=== PATIENT | female | born 1995 | race African-American/Black ===

== ENCOUNTER 2020-09-30 03:13 | Emergency (ER) | payer SELFPAY ==
[2020-09-30] MEDS ORDERED: Ibuprofen 200 MG TAB ONE (04:17)
[2020-09-30] MEDS ORDERED: HYDROcodone/Acetaminophen 5/325 mg Tablet ONE (04:17)
== END 2020-09-30 04:26 | disposition home or self-care (01) ==
LOC: CSHERS 03:13
DX: K08.89 Other specified disorders of teeth and supporting structures (principal)
CPT/HCPCS: 99282

== ENCOUNTER 2020-09-30 22:41 | Emergency (ER) | payer SELFPAY ==
[2020-09-30] MEDS ORDERED: Ketorolac Tromethamine 30 MG/ML VIAL ONE (23:07)
== END 2020-09-30 23:22 | disposition home or self-care (01) ==
LOC: CSHERS 22:41
DX: K02.9 Dental caries, unspecified (principal)
CPT/HCPCS: 96372; 99282; J1885

== ENCOUNTER 2020-10-19 20:27 | Emergency (ER) | payer SELFPAY | END 2020-10-19 22:10 | disposition left against medical advice (07) | LOC: CSHERS 20:27 | DX: Z53.21 Procedure and treatment not carried out due to patient leaving prior to being seen by health care provider (principal) ==

== ENCOUNTER 2020-10-21 23:01 | Emergency (ER) | payer SELFPAY | END 2020-10-22 00:21 | disposition home or self-care (01) | LOC: CSHERS 23:01 | DX: S00.83XA Contusion of other part of head, initial encounter (principal); H60.92 Unspecified otitis externa, left ear; K02.9 Dental caries, unspecified; W50.0XXA Accidental hit or strike by another person, initial encounter | CPT/HCPCS: 99282 ==

== ENCOUNTER 2021-05-01 21:24 | Emergency (ER) | payer OTHER ==
[2021-05-01 22:07] LABS: #Basophils 0.1 10x3/uL (0.0-0.2); #Eosinphils 0.1 10x3/uL (0.0-0.5); #Monocytes 0.6 10x3/uL (0.0-1.1); #Neutrophils 4.2 10x3/uL (1.5-8.4); %Basophils 0.7 % (0.0-2.0); %Eosinophils 1.3 % (0.0-6.0); %Lymphocytes 27.3 % (18.0-47.0); %Monocytes 8.1 % (0.0-10.0); Hemoglobin 12.6 g/dL (12.0-15.5); Mean Corpuscular HGB CONC 32.6 g/dL (32.0-36.0); Mean Corpuscular Hemoglobin 30.1 pg (27.0-33.0); Mean Corpuscular Volume 92.1 fl (81.6-98.3); Mean Platelet Volume 9.2 fl (7.4-10.4); Platelet Count 332 10x3/uL (150-450); RBC Distribution Width 14.1 % (11.5-14.5); Red Blood Cell (RBC) Count 4.19 10x6/uL (3.90-5.03); White Blood Cell (WBC) Count 6.8 10x3/uL (3.5-10.5)
[2021-05-01 22:17] LABS: Bilirubin Neg (Negative); Blood, Urine Negative (Negative); Clarity Clear (Clear); Glucose, Urine (Dipstick) Normal (Negative); Ketone, Urine Negative (Negative); Leukocyte Negative (Negative); Nitrite Negative (Negative); Protein, Urine (Dipstick) 15 mg/dl (Neg-Trace); Specific Gravity, Urine 1.025 (1.002-1.036); Urobilinogen Normal mg/dL (Less than 2)
[2021-05-01 22:18] LABS: Pregnancy Test - Urine (BHCG) Negative (Negative); Pregu Control Background? CLEAR/WHITE (CLR/WHITE); Pregu Control Bar Appear? YES (CONTROL BAR); Specific Gravity 1.025 (1.002-1.036)
[2021-05-01 22:22] LABS: ALT (SGPT) 23 U/L (8-55); AST (SGOT) 16 U/L (5-34); Albumin 4.2 g/dL (3.5-5.0); Alkaline Phosphatase 72 U/L (40-110); Anion Gap 14 mmol/L (10-20); BUN (Urea Nitrogen) 8 mg/dL (7.0-18.7); Bilirubin, Total 0.2 mg/dL (0.2-1.2); Calc. Creatinine Clearance 0 mL/min (70-130); Calcium 9.2 mg/dL (7.8-10.44); Carbon Dioxide 22 mmol/L (22-29); Chloride 109 mmol/L (98-107); Globulin 3.3 g/dL (2.4-3.5); Glucose 135 mg/dL (70-105); Potassium 3.5 mmol/L (3.5-5.1); Protein, Total 7.5 g/dL (6.0-8.3); Sodium 141 mmol/L (136-145)
== END 2021-05-01 22:44 | disposition home or self-care (01) ==
LOC: CSHERS 21:24
DX: R10.30 Lower abdominal pain, unspecified (principal)
CPT/HCPCS: 80053; 81003; 81025; 85025; 99284

== ENCOUNTER 2021-06-12 17:12 | Emergency (ER) | payer OTHER ==
[2021-06-12 18:40] LABS: Bilirubin Neg (Negative); Blood, Urine 150 (Negative); Clarity Clear (Clear); Glucose, Urine (Dipstick) Normal (Negative); Ketone, Urine Negative (Negative); Leukocyte Negative (Negative); Nitrite Negative (Negative); Protein, Urine (Dipstick) Negative (Neg-Trace); Specific Gravity, Urine 1.015 (1.002-1.036); Urobilinogen Normal mg/dL (Less than 2)
[2021-06-12 19:00] LABS: Bacteria/HPF Rare-Few HPF (None Seen); RBC/HPF 21-50 HPF (0-3); Squamous Epithelial 0-3 HPF (0-3); WBC/HPF 0-3 HPF (0-3)
[2021-06-12 19:01] LABS: Mucous/LPF Rare LPF (<2+)
== END 2021-06-12 19:09 | disposition home or self-care (01) ==
LOC: CSHERS 17:12
DX: B34.9 Viral infection, unspecified (principal)
CPT/HCPCS: 71045; 81003; 81015

== ENCOUNTER 2022-01-07 23:47 | Emergency (ER) | payer OTHER ==
[2022-01-08] MEDS ORDERED: AMOXicillin 250 MG CAP ONE (02:04)
[2022-01-08 02:28] LABS: Bilirubin Neg (Negative); Blood, Urine 150 (Negative); Clarity Clear (Clear); Glucose, Urine (Dipstick) Normal (Negative); Ketone, Urine Negative (Negative); Leukocyte Negative (Negative); Nitrite Negative (Negative); Protein, Urine (Dipstick) 15 mg/dl (Neg-Trace); Specific Gravity, Urine 1.025 (1.002-1.036); Urobilinogen Normal mg/dL (Less than 2)
[2022-01-08 02:32] LABS: Pregnancy Test - Urine (BHCG) Negative (Negative); Pregu Control Background? CLEAR/WHITE (CLR/WHITE); Pregu Control Bar Appear? YES (CONTROL BAR); Specific Gravity 1.025 (1.002-1.036)
[2022-01-08 02:52] LABS: Bacteria/HPF Rare-Few HPF (None Seen); RBC/HPF 0-3 HPF (0-3)
== END 2022-01-08 02:47 | disposition home or self-care (01) ==
LOC: EEVIPCON 23:47 → CSHERS 23:47
DX: T49.8X1A Poisoning by other topical agents, accidental (unintentional), initial encounter (principal); L25.0 Unspecified contact dermatitis due to cosmetics; K02.9 Dental caries, unspecified; R10.9 Unspecified abdominal pain
CPT/HCPCS: 81003; 81015; 81025; 99284

== ENCOUNTER 2022-02-04 03:22 | Emergency (ER) | payer OTHER ==
[2022-02-04 03:59] LABS: Bilirubin Neg (Negative); Blood, Urine 50 (Negative); Clarity Clear (Clear); Glucose, Urine (Dipstick) Normal (Negative); Ketone, Urine Negative (Negative); Leukocyte Negative (Negative); Nitrite Negative (Negative); Protein, Urine (Dipstick) 15 mg/dl (Neg-Trace); Specific Gravity, Urine 1.025 (1.002-1.036); Urobilinogen Normal mg/dL (Less than 2)
[2022-02-04 04:07] LABS: Pregnancy Test - Urine (BHCG) Negative (Negative); Pregu Control Background? CLEAR/WHITE (CLR/WHITE); Pregu Control Bar Appear? YES (CONTROL BAR); Specific Gravity 1.025 (1.002-1.036)
[2022-02-04 04:12] LABS: Bacteria/HPF 1+ HPF (None Seen); RBC/HPF 0-3 HPF (0-3); WBC/HPF 0-3 HPF (0-3)
== END 2022-02-04 04:36 | disposition home or self-care (01) ==
LOC: CSHERS 03:22
DX: R30.0 Dysuria (principal); R03.0 Elevated blood-pressure reading, without diagnosis of hypertension
CPT/HCPCS: 81003; 81015; 81025; 99284

== ENCOUNTER 2022-07-05 17:20 | Emergency (ER) | payer SELFPAY ==
[2022-07-05] MEDS ORDERED: Acetaminophen 500 MG TAB ONE (18:08)
== END 2022-07-05 18:10 | disposition home or self-care (01) ==
LOC: CSHERS 17:20
DX: K04.7 Periapical abscess without sinus (principal); K02.9 Dental caries, unspecified
CPT/HCPCS: 99282

== ENCOUNTER 2023-05-17 18:28 | Emergency (ER) | payer OTHER, SELFPAY ==
[2023-05-17 20:25] LABS: #Eosinphils 0.1 10x3/uL (0.0-0.5); #Monocytes 0.3 10x3/uL (0.0-1.1); #Neutrophils 3.3 10x3/uL (1.5-8.4); %Basophils 0.6 % (0.0-2.0); %Eosinophils 1.5 % (0.0-6.0); %Lymphocytes 42.2 % (18.0-47.0); %Monocytes 5.2 % (0.0-10.0); Hematocrit 40.5 % (34.9-44.5); Mean Corpuscular HGB CONC 32.1 g/dL (32.0-36.0); Mean Corpuscular Hemoglobin 29.8 pg (27.0-33.0); Mean Corpuscular Volume 92.9 fl (81.6-98.3); Mean Platelet Volume 9.3 fl (7.4-10.4); Platelet Count 351 10x3/uL (150-450); RBC Distribution Width 13.6 % (11.5-14.5); Red Blood Cell (RBC) Count 4.36 10x6/uL (3.90-5.03); White Blood Cell (WBC) Count 6.5 10x3/uL (3.5-10.5)
[2023-05-17 20:32] LABS: ALT (SGPT) 21 U/L (8-55); AST (SGOT) 16 U/L (5-34); Albumin 4.5 g/dL (3.5-5.0); Alkaline Phosphatase 77 U/L (40-110); Anion Gap 13 mmol/L (10-20); BUN (Urea Nitrogen) 8 mg/dL (7.0-18.7); Bilirubin, Total 0.3 mg/dL (0.2-1.2); Calc. Creatinine Clearance 0 mL/min (70-130); Calcium 9.5 mg/dL (7.8-10.44); Carbon Dioxide 25 mmol/L (22-29); Chloride 108 mmol/L (98-107); Estimated GFR 105; Globulin 3.1 g/dL (2.4-3.5); Glucose 94 mg/dL (70-105); Potassium 4.2 mmol/L (3.5-5.1); Protein, Total 7.6 g/dL (6.0-8.3); Sodium 142 mmol/L (136-145)
[2023-05-17 20:38] LABS: Troponin I Less than 0.010 ng/mL (< 0.028)
== END 2023-05-17 21:58 | disposition home or self-care (01) ==
LOC: CSHERS 18:28
DX: R07.9 Chest pain, unspecified (principal); R05.9 Cough, unspecified
CPT/HCPCS: 71045; 80053; 84484; 85025; 85379; 93005

== ENCOUNTER 2025-03-18 22:23 | Emergency (ER) | payer SELFPAY ==
[2025-03-18 23:20] LABS: #Basophils 0.04 10x3/uL (0.0-0.2); #Eosinophils 0.16 10x3/uL (0.0-0.5); #Monocytes 0.41 10x3/uL (0.0-1.1); #Neutrophils 3.00 10x3/uL (1.5-8.4); %Basophils 0.6 % (0.0-2.0); %Eosinophils 2.4 % (0.0-6.0); %Lymphocytes 45.9 % (18.0-47.0); %Monocytes 6.1 % (0.0-10.0); %Neutrophils 44.7 % (40.0-75.0); Hematocrit 39.8 % (34.9-44.5); Hemoglobin 12.5 g/dL (12.0-15.5); Mean Corpuscular Hemoglobin 29.7 pg (27.0-33.0); Mean Corpuscular Volume 94.5 fL (81.6-98.3); Platelet Count 308 10x3/uL (150-450); Red Blood Cell (RBC) Count 4.21 10x6/uL (3.90-5.03); White Blood Cell (WBC) Count 6.71 10x3/uL (3.5-10.5)
[2025-03-18 23:35] LABS: ALT (SGPT) 16 U/L (Less than 34); AST (SGOT) 16 U/L (11-34); Albumin 4.0 g/dL (3.1-4.5); Alkaline Phosphatase 65 U/L (40-110); Anion Gap 11 mmol/L (10-20); BUN (Urea Nitrogen) 10 mg/dL (7.0-18.7); Bilirubin, Total 0.2 mg/dL (0.3-1.2); Calc. Creatinine Clearance 0 mL/min (70-130); Calcium 9.6 mg/dL (7.8-10.44); Carbon Dioxide 28 mmol/L (22-29); Chloride 107 mmol/L (98-107); Globulin 3.5 g/dL (2.4-3.5); Glucose 114 mg/dL (70-105); Potassium 4.1 mmol/L (3.5-5.1); Sodium 142 mmol/L (136-145)
[2025-03-18 23:41] LABS: Troponin I Less than 0.010 ng/mL (< 0.028)
== END 2025-03-18 23:45 | disposition home or self-care (01) ==
LOC: CSHERS 22:23
DX: R07.9 Chest pain, unspecified (principal); I10 Essential (primary) hypertension
CPT/HCPCS: 36415; 71045; 80053; 84484; 85025; 85379; 93005; 94760

== ENCOUNTER 2025-05-04 18:53 | Emergency (ER) | payer MEDICAID, SELFPAY ==
[2025-05-04 21:00] LABS: Pregnancy Test - Urine (BHCG) Negative (Negative); Pregu Control Background? CLEAR/WHITE (CLR/WHITE); Pregu Control Bar Appear? YES (CONTROL BAR)
== END 2025-05-04 21:12 | disposition home or self-care (01) ==
LOC: CSHERS 18:53
DX: J98.8 Other specified respiratory disorders (principal); B97.89 Other viral agents as the cause of diseases classified elsewhere; I10 Essential (primary) hypertension
CPT/HCPCS: 71046; 81025; 87428; Q0162

== ENCOUNTER 2025-06-14 14:14 | Emergency (ER) | payer SELFPAY ==
[2025-06-14 15:30] LABS: Glucose, Urine (Dipstick) Normal (Negative); Leukocyte Negative (Negative); Protein, Urine (Dipstick) Negative (Neg-Trace); Specific Gravity, Urine 1.025 (1.005-1.030)
[2025-06-14 15:36] LABS: Pregnancy Test - Urine (BHCG) Indeterminate (Negative); Pregu Control Background? CLEAR/WHITE (CLR/WHITE); Pregu Control Bar Appear? YES (CONTROL BAR)
[2025-06-14 15:49] LABS: CAUTI Indications for Culture Pelvic or flank pain; RBC/HPF None Seen HPF (0-3); WBC/HPF None Seen HPF (0-3)
[2025-06-14 15:50] LABS: Bacteria/HPF None Seen HPF (None Seen)
[2025-06-14 15:51] LABS: Urine Culture Reflex No No
[2025-06-14 16:01] LABS: BHCG - Serum POSITIVE (NEGATIVE); Pregs Control Background? CLEAR/WHITE (CLR/WHITE); Pregs Control Bar Appear? YES (CONTROL BAR)
== END 2025-06-14 16:27 | disposition home or self-care (01) ==
LOC: CSHERS 14:14
DX: O99.891 Other specified diseases and conditions complicating pregnancy (principal); N64.4 Mastodynia; O10.919 Unspecified pre-existing hypertension complicating pregnancy, unspecified trimester; Z3A.00 Weeks of gestation of pregnancy not specified
CPT/HCPCS: 36415; 81001; 81025; 84703; 99283